=== PATIENT | female | born 1955 | race Caucasian/White ===

== ENCOUNTER 2021-10-13 14:45 | Emergency (ER) | payer MEDICARE, MEDICAID ==
[2021-10-13 14:52] VITALS: BP 125/77; PULSE 95
[2021-10-13] MEDS: Ketorolac 30 MG/ML SDV IM ONE (15:21)
== END 2021-10-13 16:18 | disposition home or self-care (01) ==
LOC: LL.ED 14:45 → MERGE 14:45 → LL.ED 16:18
DX: M25.522 Pain in left elbow (principal); M25.532 Pain in left wrist; M25.512 Pain in left shoulder; M25.552 Pain in left hip; M25.422 Effusion, left elbow; W10.9XXA Fall (on) (from) unspecified stairs and steps, initial encounter
CPT/HCPCS: 73020; 73070; 73110; 73502; 96372; 99283; J1885

== ENCOUNTER 2022-11-15 10:30 | Day surgery (SDC) | payer MEDICARE, MEDICAID ==
[~2022-11-15 10:30] MED LIST: Midazolam 1 MG/ML 2 ML SDV ONE; Propofol 200 MG/20 ML SDV ONE
[2022-11-15] MEDS ORDERED: Lactated Ringers 1,000 ML IV SCH (11:15)
[2022-11-15] MEDS ORDERED: Sodium Chloride 0.9% 10 ML Syringe FLUSH PRN (11:15)
[2022-11-15 13:33] VITALS: BP 115/66; PULSE 66
== END 2022-11-15 13:48 | disposition home or self-care (01) ==
LOC: LL.SDS 10:30
PROVIDERS: ATTEND Surgery
DX: D12.3 Benign neoplasm of transverse colon (principal); K57.30 Diverticulosis of large intestine without perforation or abscess without bleeding; I10 Essential (primary) hypertension; F41.9 Anxiety disorder, unspecified; M79.7 Fibromyalgia; E78.00 Pure hypercholesterolemia, unspecified; J45.909 Unspecified asthma, uncomplicated; M17.11 Unilateral primary osteoarthritis, right knee; F33.0 Major depressive disorder, recurrent, mild; Z79.899 Other long term (current) drug therapy; Z88.0 Allergy status to penicillin; Z88.1 Allergy status to other antibiotic agents; Z91.048 Other nonmedicinal substance allergy status
CPT/HCPCS: 00812; J2250; J2704; J7120

== ENCOUNTER 2023-09-27 09:58 | Emergency (ER) | payer MEDICARE, MEDICAID ==
[2023-09-27 10:02] VITALS: BP 132/78; PULSE 97
== END 2023-09-27 10:36 | disposition home or self-care (01) ==
LOC: LL.ED 09:58 → SUPCPDRO 09:58 → LL.ED 10:36
DX: S51.802A Unspecified open wound of left forearm, initial encounter (principal); D36.7 Benign neoplasm of other specified sites; X58.XXXA Exposure to other specified factors, initial encounter
CPT/HCPCS: 99283

== ENCOUNTER 2023-12-17 18:11 | Emergency (ER) | payer MEDICARE, MEDICAID ==
[2023-12-17] MEDS: Cephalexin 500 MG Cap PO ONE (19:30)
[2023-12-17 19:40] VITALS: BP 129/79; PULSE 73
== END 2023-12-17 19:20 | disposition home or self-care (01) ==
LOC: LL.ED 18:11
DX: S50.811A Abrasion of right forearm, initial encounter (principal); J02.9 Acute pharyngitis, unspecified; I10 Essential (primary) hypertension; E78.00 Pure hypercholesterolemia, unspecified; E66.9 Obesity, unspecified; Z88.0 Allergy status to penicillin; Z88.1 Allergy status to other antibiotic agents; Z91.048 Other nonmedicinal substance allergy status; Z88.8 Allergy status to other drugs, medicaments and biological substances; Z91.041 Radiographic dye allergy status; Z79.899 Other long term (current) drug therapy; X58.XXXA Exposure to other specified factors, initial encounter
CPT/HCPCS: 87651-QW; 99283; A9270-GY; U0002

== ENCOUNTER 2024-02-16 19:49 | Emergency (ER) | payer MEDICARE, MEDICAID ==
[2024-02-16] MEDS: Orphenadrine 60 MG/2 ML Inj IM ONE (20:22)
[2024-02-16] MEDS: Ketorolac 30 MG/ML SDV IM ONE (20:23)
[2024-02-16 21:23] VITALS: BP 146/83; PULSE 83
[2024-02-16] MEDS: Take Home: traMADol 50 MG, 4 Tab Pack PO ONE (21:29)
[2024-02-16] MEDS: Take Home: Cyclobenzaprine 10 MG Tab, 4 Tab Pack PO ONE (21:29)
== END 2024-02-16 21:37 | disposition home or self-care (01) ==
LOC: LL.ED 19:49
DX: M54.50 Low back pain, unspecified (principal); I10 Essential (primary) hypertension; E78.00 Pure hypercholesterolemia, unspecified; J45.909 Unspecified asthma, uncomplicated; E66.9 Obesity, unspecified; Z88.0 Allergy status to penicillin; Z88.1 Allergy status to other antibiotic agents; Z88.8 Allergy status to other drugs, medicaments and biological substances; Z91.048 Other nonmedicinal substance allergy status; Z91.041 Radiographic dye allergy status; Z79.51 Long term (current) use of inhaled steroids
CPT/HCPCS: 72100; 73080-RT; 96372; 99283; A9270-GY; J1885; J2360

== ENCOUNTER 2024-08-28 18:36 | Emergency (ER) | payer MEDICARE, MEDICAID ==
[2024-08-28 18:43] VITALS: PULSE 75
[2024-08-28 18:59] VITALS: BP 145/76
== END 2024-08-28 19:55 | disposition home or self-care (01) ==
LOC: LL.ED 18:36
DX: S60.222A Contusion of left hand, initial encounter (principal); S80.01XA Contusion of right knee, initial encounter; I10 Essential (primary) hypertension; E78.00 Pure hypercholesterolemia, unspecified; E66.9 Obesity, unspecified; Z88.0 Allergy status to penicillin; Z88.1 Allergy status to other antibiotic agents; Z91.041 Radiographic dye allergy status; Z88.8 Allergy status to other drugs, medicaments and biological substances; Z91.048 Other nonmedicinal substance allergy status; Z79.899 Other long term (current) drug therapy; W01.0XXA Fall on same level from slipping, tripping and stumbling without subsequent striking against object, initial encounter
CPT/HCPCS: 73130-LT; 73562-RT; 99283